=== PATIENT | female | born 1945 | race Caucasian/White ===

== ENCOUNTER 2018-04-08 11:04 | Emergency (ER) | payer MEDICARE, OTHER ==
[2016-09-30 11:10] VITALS: Wt 81.6 kg
[~2018-04-08 11:04] MED LIST: AMOX-559 PO; LEVO750T27 PO; LOR5/325 PO; NO MEDS; PEN250L PO
--- NOTE | 2018-04-08 11:12 | ER Report ---
History and Physical Time Seen By MD: 11:11 HPI/ROS CHIEF COMPLAINT: Possible DVT HISTORY OF PRESENT ILLNESS: This is a 73-year-old female presents to the emergency department for possible DVT. Patient states that yesterday morning she woke up with some left calf pain presently getting worse. Patient states she does have a history of DVT in the same leg became concerned and came in for further evaluation. Patient has not other complaints. No chest pain or shortness breath. No fevers or chills. REVIEW OF SYSTEMS: Respiratory: No cough, no dyspnea. Cardiovascular: No chest pain, no palpitations. Gastrointestinal: No vomiting, no abdominal pain. Musculoskeletal: As above. Allergies: Coded Allergies: No Known Drug Allergies (Unverified , 04/08/18) Home Meds Discontinued Scripts Amoxicillin/Pot Clav 875-125 Mg Tab (AUGMENTIN 875-125 TABLET) 1 Each Tablet, 1 TAB PO Q12H for 7 Days, TAB Prov:LIZAMANASALEKSEYALBA MARQUES 12/15/16 Past Medical/Surgical History The patient has a past medical and surgical history right hip replacement, blood clot secondary to hip replacement, abdominal surgery for stomach stapling , cholecystectomy. Reviewed Nurses Notes: Yes Hx Smoking: No Smoking Status: Former Smoker Hx Substance Use Disorder: No Hx Alcohol Use: No Constitutional Vital Sign - Last 24 Hours 04/08/18 04/08/18 04/08/18 04/08/18 11:10 11:12 11:19 11:30 Temp 97.9 Pulse 80 75 Resp 12 B/P (MAP) 130/93 (105) 130/93 117/76 (90) Pulse Ox 94 91 O2 Delivery Room Air Room Air 04/08/18 04/08/18 04/08/18 04/08/18 11:34 11:49 12:00 12:19 Pulse 75 70 63 B/P (MAP) 118/77 (91) Pulse Ox 94 97 94 O2 Delivery Room Air Room Air Room Air 04/08/18 04/08/18 12:30 12:34 Pulse 67 B/P (MAP) 115/72 (86) Pulse Ox 89 O2 Delivery Room Air Physical Exam General Appearance: The patient is alert, has no immediate need for airway protection and no current signs of toxicity. Eyes: Pupils equal and round no injection. Respiratory: Chest is non tender, lungs are clear to auscultation. Cardiac: regular rate and rhythm, no murmurs, clicks or rubs. Gastrointestinal: Abdomen is soft and non tender, no masses, bowel sounds normal. Musculoskeletal: Neck: Neck is supple and non tender. Extremities have full range of motion and are non tender. Skin: No rashes or lesions. DIFFERENTIAL DIAGNOSIS: After history and physical exam differential diagnosis was considered for muscle strain, deep vein thrombosis, Payne's cyst and superficial clot. Medical Decision Making EKG/Imaging Imaging Location: [facility] - [place] Patient: Matilde Mejia : 1945 Visit/Account:[id number] Date of Sevice: 04/08/2018 Venous Doppler ultrasound left lower extremity Indication: Evaluate for DVT. Comparison: None Available Findings: Duplex Doppler and color flow imaging was performed. The common femoral, femoral, and popliteal veins are all patent and compressible with normal Doppler wave forms. There are normal responses to augmentation. The posterior tibial and peroneal veins are patent in the calf. The proximal greater saphenous vein is also normal. IMPRESSION: 1. No evidence of deep venous thrombosis of the left lower extremity. Report Dictated By: Al Bermeo DO at 04/08/2018 12:34 PM Report E-Signed By: Al Bermeo DO at 04/08/2018 12:36 PM WSN:[email or web address] ED Course/Re-evaluation ED Course The patient was admitted to room. A history and physical were obtained. Differential diagnoses were considered. An ultrasound of the left lower extremity was negative for DVT. I did review these results with the patient and her , patient was relieved that there is no clot. I did tell the patient that it's likely a muscle cramp is causing some of the discomfort. I did tell her to follow-up with her primary care provider in about 2-4 days if no improvement. Return to the ER for any concerns or worsening symptoms. Patient was in agreement with this plan care and discharged home. Decision to Disposition Date: Apr 08, 2018 Decision to Disposition Time: 12:59 Depart Departure Latest Vital Signs Vital Signs Date Time Temp Pulse Resp B/P (MAP) Pulse Ox O2 Delivery O2 Flow Rate FiO2 04/08/18 12:34 67 89 Room Air 04/08/18 12:30 115/72 (86) 04/08/18 11:12 97.9 12 Impression: Primary Impression: Pain of left calf Condition: Improved Disposition: HOME OR SELF-CARE Referrals: MAIN STEVENS PA-C (PCP) 2 Days Patient Instructions: Leg Pain (ED) Additional Instructions: There is no evidence of DVT the left calf On ultrasound, the pain your experiencing could be a muscle strain. Be sure to drink plenty of water. Get plenty of rest. Try gentle range of motion and stretching exercises to see if this would relieve some of the discomfort. It and also try ibuprofen or Tylenol as needed for pain. Follow-up with your primary care provider in 2-4 days if no improvement. Return of the ER for any other concerns or worsening symptoms. MARY CHAUHAN CELL TECHNICIAN-BC Apr 08, 2018 11:12
[2018-04-08 12:30] VITALS: BP 115/72
--- NOTE | 2018-04-08 12:39 | RADIOLOGY IMAGING REPORT ---
FAC[facility] PATIENT NAME: Matilde Mejia : 1945 MR: [id number] V: [id number] EXAM DATE: ORDERING PHYSICIAN: MARY CHAUHAN TECHNOLOGIST: Location: [facility] - [place] Patient: Matilde Mejia : 1945 Visit/Account:[id number] Date of Sevice: 04/08/2018 Venous Doppler ultrasound left lower extremity Indication: Evaluate for DVT. Comparison: None Available Findings: Duplex Doppler and color flow imaging was performed. The common femoral, femoral, and popl iteal veins are all patent and compressible with normal Doppler wave forms. There are normal respons es to augmentation. The posterior tibial and peroneal veins are patent in the calf. The proximal greater saphenous vein is also normal. IMPRESSION: 1. No evidence of deep venous thrombosis of the left lower extremity. Report Dictated By: Al Bermeo DO at 04/08/2018 12:34 PM Report E-Signed By: Al Bermeo DO at 04/08/2018 12:36 PM WSN:[email or web address]
== END 2018-04-08 13:09 | disposition home or self-care (01) ==
LOC: ER 11:13
DX: M79.662 Pain in left lower leg (principal)
CPT/HCPCS: 99284

== ENCOUNTER → 2018-05-31 | Outpatient (REF) | payer MEDICARE, OTHER ==
[2016-09-30 11:10] VITALS: BMI 34.0
[2018-05-31 14:48] LABS: PLATELET COUNT, AUTOMATED 230 K/uL (150-450)
== END ==
LOC: ZZSENDIN 14:11
PROVIDERS: ATTEND Physician Assistant
DX: Z01.812 Encounter for preprocedural laboratory examination (principal); N39.0 Urinary tract infection, site not specified
CPT/HCPCS: 81001; 85025; 87088

== ENCOUNTER → 2018-06-01 | Outpatient (REF) | payer MEDICARE, OTHER ==
[2016-09-30 11:10] VITALS: BMI 34.0
== END ==
LOC: ZZSENDIN 10:50
PROVIDERS: ATTEND Orthopaedic Surgery
DX: Z01.812 Encounter for preprocedural laboratory examination (principal); E03.9 Hypothyroidism, unspecified; M17.12 Unilateral primary osteoarthritis, left knee; Z86.718 Personal history of other venous thrombosis and embolism
CPT/HCPCS: 86850; 86900; 86901

== ENCOUNTER → 2018-06-02 | Outpatient (CLI) | payer MEDICARE, OTHER ==
[2016-09-30 11:10] VITALS: BMI 34.0
== END ==
LOC: LAB 11:04
PROVIDERS: ATTEND Orthopaedic Surgery
DX: Z01.812 Encounter for preprocedural laboratory examination (principal); Z01.810 Encounter for preprocedural cardiovascular examination; M17.12 Unilateral primary osteoarthritis, left knee

== ENCOUNTER → 2018-06-09 | Outpatient (REF) | payer MEDICARE, OTHER ==
[2016-09-30 11:10] VITALS: BMI 34.0
[~2018-06-09] MED LIST changes: +LEVO88TA43 PO; +NITR-1 PO
== END ==
LOC: ZZSENDIN 10:32
PROVIDERS: ATTEND Family Medicine
DX: N39.0 Urinary tract infection, site not specified (principal)
CPT/HCPCS: 81001

== ENCOUNTER 2018-06-13 00:26 | Observation (INO) | payer MEDICARE, OTHER ==
[2018-06-12 11:01] LABS: INR 0.92
[2018-06-13] VITALS (8 sets, daily range): BP systolic 95–149; BP diastolic 60–96
[~2018-06-13] VITALS: Ht 162.6 cm; Wt 82.1 kg
[2018-06-13] MEDS ORDERED: fentaNYL CITR 250 MCG/5 ML AMP ONE (12:42)
[2018-06-13] MEDS ORDERED: ONDANSETRON 4 MG/2 ML VIAL ONE (12:43)
[2018-06-13] MEDS ORDERED: PROPOFOL EMUL(*) 10MG/ML 20 ML 20 ML ONE (12:43)
[2018-06-13] MEDS ORDERED: DEXAMETHASONE SOD 4 MG/ML VIAL ONE (12:43)
[2018-06-13] MEDS ORDERED: KETAMINE HCL 200 MG/20 ML MDV ONE (12:44)
[2018-06-13] MEDS ORDERED: ROPIVACAINE 0.2% 20 ML VIAL ONE (12:45)
[2018-06-13] MEDS ORDERED: LIDOCAINE/SOD BICARB 8.4% SYR ID ONE (14:15)
[2018-06-13] MEDS ORDERED: TRANEXAMIC AC 1000 MG/10ML SDV 1,000 MG in DEXTROSE 5% 50 ML BAG 50 ML IV ONE (14:15)
[2018-06-13] MEDS ORDERED: FAMOTIDINE 20 MG TAB PO ONE (14:15)
[2018-06-13] MEDS ORDERED: CELECOXIB 200 MG CAP PO ONE (14:15)
[2018-06-13] MEDS ORDERED: ceFAZolin(*) 2GM/D5W 50ML 50 ML IVPB ONE (14:15)
[2018-06-13] MEDS ORDERED: NORMOSOL R SOLN(*) 1000 ML BAG 1,000 ML IV PRN ×2 (14:15→16:15)
[2018-06-13] MEDS ORDERED: ACETAMINOPHEN 500 MG TAB PO ONE (14:15)
[2018-06-13] MEDS ORDERED: ROPIVACAINE 0.2% 400 MG/200ML 250 ML CONINFUS ONE (14:15)
[2018-06-13] MEDS ORDERED: PREGABALIN 75 MG CAPSULE PO ONE (14:15)
[2018-06-13] MEDS ORDERED: cloNIDine EPIDUR INJ 100MCG/ML 40 MCG, ROPIVACAINE 0.5% 20 ML VIAL 25 ML, EPINEPHrine H... INJ ONE (14:15)
[2018-06-13] MEDS ORDERED: MIDAZOLAM 2 MG/2 ML VIAL IVP PRN (14:15)
[2018-06-13] MEDS ORDERED: ROCURONIUM BROM 10 MG/ML 5 ML ONE (14:30)
[2018-06-13] MEDS ORDERED: HYDROmorphone HCL 2 MG/ML SDV ONE (14:35)
[2018-06-13] MEDS ORDERED: SUGAMMADEX SOD 200 MG/2 ML SDV ONE (14:53)
[2018-06-13] MEDS ORDERED: MAGNESIUM HYDROXIDE* 30ML UDCP PO PRN (16:15)
[2018-06-13] MEDS ORDERED: ONDANSETRON 4 MG/2 ML VIAL IVP PRN (16:15)
[2018-06-13] MEDS ORDERED: PROMETHAZINE 25 MG/ML 1 ML AMP IVP PRN (16:15)
[2018-06-13] MEDS ORDERED: BISACODYL 10 MG SUPP PR PRN (16:15)
[2018-06-13] MEDS ORDERED: ZOLPIDEM TARTRATE 5 MG TAB PO PRN (16:15)
[2018-06-13] MEDS ORDERED: FLUSH 10 ML SYR IVP PRN (16:15)
[2018-06-13] MEDS ORDERED: MORPHINE 4 MG/ML SDV IVP PRN (16:15)
--- NOTE | 2018-06-13 17:15 | RADIOLOGY IMAGING REPORT ---
FACILITY: [facility] - [place] PATIENT NAME: Matilde Mejia : 1945 MR: [id number] V: [id number] EXAM DATE: [id number] ORDERING PHYSICIAN: MELANIE EDGAR TECHNOLOGIST: Location: [facility] Patient: Matilde Mejia : 1945 Visit/Account:[id number] Date of Sevice: 06/13/2018 Exam type: KNEE LIMITED LEFT History: POST OP L TKA Comparison: None. Findings: Two views the left knee demonstrate a left knee arthroplasty in good anatomic alignment. Soft tissue gas projects over the anterior aspect of this postoperative knee IMPRESSION: 1. Left knee arthroplasty appears in good anatomic alignment Report Dictated By: Cathi Santillan MD at 06/13/2018 5:12 PM Report E-Signed By: Cathi Santillan MD at 06/13/2018 5:12 PM WSN:[email or web address]
--- NOTE | 2018-06-13 18:03 | Hospitalist Consultation ---
History of Present Illness Requesting Physician Dr. Gay Reason for Consult Anticoagulation History of Present Illness This patient was admitted for knee replacement surgery. It is reported that the surgery went well and was without complication. History Problems: (1) Hypothyroid (2) History of DVT (deep vein thrombosis) (3) History of cholecystectomy Status: Chronic (4) History of hip replacement Status: Chronic (5) History of gastric surgery Status: Chronic Home Meds Reported Medications Nitrofurantoin Macrocrystal (NITROFURANTOIN) 100 Mg Capsule, 100 MG PO BID, CAPSULE 06/06/18 Levothyroxine Sodium (SYNTHROID) 88 Mcg Tablet, 88 MCG PO QDAY 06/06/18 Allergies: Coded Allergies: No Known Drug Allergies (Unverified , 06/06/18) Patient History: Patient reports no known family medical history. Hx Smoking: No Smoking Status: Never Smoker Caffeine Intake: Coffee Caffeine/Cups Per Day: 3-4 Hx Alcohol Use: No Hx Substance Use Disorder: No Social Drug Use: Never History of IV Drug Use: No Review of Systems All Systems Reviewed/Normal: Yes Exam Vital Signs Vital Signs Date Time Temp Pulse Resp B/P (MAP) Pulse Ox O2 Delivery O2 Flow Rate FiO2 06/13/18 17:13 97.3 66 16 134/81 (98) 98 Nasal Cannula 2.0 Cardiovascular: Regular Rate and Rhythm Respiratory: Clear to Auscultation Assessment and Plan Problems: (1) S/P knee replacement Assessment & Plan: She is on Xarelto prophylaxis. (2) Hypothyroid Assessment & Plan: She is on chronic treatment with Synthroid. Venous Thromboembolism Antithrombotics Is Pt On Any Antithrombotics?: Yes DAKSHA FOSTER DO Jun 13, 2018 18:03
[2018-06-13] MEDS ORDERED: ACETAMINOPHEN 500 MG TAB ONE (21:05)
[2018-06-13] MEDS: ACETAMINOPHEN 500 MG TAB PO SCH (21:05)
[2018-06-13] MEDS ORDERED: NS(*) 0.9% 250 ML BAG 250 ML ONE (21:07)
[2018-06-13] MEDS: ceFAZolin(*) 1 GM VIAL 1 GM in NS(*) 0.9% 100 ML ADDVANT BAG 100 ML IVPB SCH (21:15)
[2018-06-14] MEDS: ACETAMINOPHEN 500 MG TAB PO SCH ×3 (03:34→19:30)
[2018-06-14 03:35] VITALS: BP 127/73
[2018-06-14] MEDS: ceFAZolin(*) 1 GM VIAL 1 GM in NS(*) 0.9% 100 ML ADDVANT BAG 100 ML IVPB SCH ×2 (05:55→13:43)
[2018-06-14] MEDS: LEVOTHYROXINE SOD 0.088 MG TAB PO SCH (05:55)
[2018-06-14 07:30] VITALS: BP 113/65
[2018-06-14] MEDS: RIVAROXABAN 10 MG TAB PO SCH (10:09)
--- NOTE | 2018-06-14 11:17 | Hospitalist Progress Note ---
Subjective Progress Notes Subjective She has no complaints this morning. She had no acute events overnight. Patient Complains of: Cardiovascular: No: Chest Pain Respiratory: No: Shortness of Breath Physical Exam Vital Signs Date Time Temp Pulse Resp B/P (MAP) Pulse Ox O2 Delivery O2 Flow Rate FiO2 06/14/18 07:32 94 Nasal Cannula 2.0 06/14/18 07:30 97.8 64 14 113/65 (81) Intake and Output 06/14/18 07:00 Intake Total 3100 ml Output Total 175 ml Balance 2925 ml Intake Oral 1000 ml IV Total 2100 ml Output Estimated Blood Loss 175 ml # Voids 2 General Appearance: Alert, Awake, No Acute Distress, Afebrile Neuro: No Gross deficits Cardiovascular: Regular Rate and Rhythm Respiratory: No Respiratory Distress, Clear to Auscultation GI: Soft and Non-Tender Extremities: Warm, Perfused; No Edema Psych: Alert & Oriented X3, Appropriate Mood & Affect Assessment and Plan Problems: (1) S/P knee replacement Assessment & Plan: She is on Xarelto prophylaxis. (2) Hypothyroid Assessment & Plan: She is on chronic treatment with Synthroid. Exam Sepsis Risk: No Definite Risk FORD BENSON DESK MANAGER Jun 14, 2018 11:17
[2018-06-14 11:26] VITALS: BP 130/68
--- NOTE | 2018-06-14 11:30 | CARSON TKA ---
EVENT DATE: June 13, 2018 SURGEON: Caio Gay MD ANESTHESIOLOGIST: Brennan Chambers MD ANESTHESIA: Left adductor block followed by general. We also utilized 50 cc of our standard Toradol/ropivacaine cocktail. BOILER OR ENGINE OPERATOR: Alex Rodriguez PA-C PREOPERATIVE DIAGNOSIS Left knee degenerative joint disease. POSTOPERATIVE DIAGNOSIS Left knee degenerative joint disease. PROCEDURE PERFORMED Left total knee arthroplasty. IMPLANTS Micro-Port Medial Pivot CS System with a 3 femur, 3 tibia, 14 mm CS insert, 8x29 symmetric patella, femur cut 6 degrees valgus, 10 mm. We also utilized two packages of [employer] [place] Blue Cement and ZipLine Wound Closure System. SPECIMENS None. COMPLICATIONS None. ESTIMATED BLOOD LOSS Less than 200 cc. OPERATION The patient was brought to the OR, after receiving appropriate preoperative antibiotic and Dr. Chambers performed left adductor canal block followed by general anesthesia. Left thigh tourniquet placed. The left lower extremity was prepped and draped in the usual sterile fashion. Midline incision was made followed by a medial parapatellar arthrotomy. I dissected subperiosteally along the medial tibial plateau to the level of the semimembranosus insertion. A fat pad was excised. The lateral gutter was released of adhesions. The patella was released and everted. The knee was brought up in hyperflexion. ACL and PCL were released subperiosteally by Bovie. The remaining articular cartilage was removed from the distal femoral condyle. Sep-cut drill was utilized to broach the femoral canal. We placed an intramedullary distal femoral cutting guide and set the cutting block up at 10 mm, 6-degrees valgus with care taken to protect the soft tissues and made the distal cut. 3-degree external rotation guide and sizer was positioned, referencing out the posterior condyles, anterior condyles and anterior flange. This was sized to #3 and 3-degree external rotation holes were drilled. Four-in-one cutting block was positioned followed by Z-retractors to protect the soft tissue and our four cuts were made. The tibia was then brought anteriorly on the femur with appropriate retractors. The tibial canal was broached with the Step- cut drill. Intramedullary tibial guide was then positioned, which was referencing for the slope. Then we referenced 10 mm off the least involved lateral tibial plateau where there was eburnation noted on the medial side. We set up for rotation, pinning our block into place with care taken to protect the soft tissues and made our tibial cut and this was sized to #3. The stump of the ACL and PCL and medial and lateral meniscus were removed by Bovie. Posterior osteophytes were removed by curved osteotome. The capsule was elevated with Paredes elevator. Trial tibial baseplate #3 was positioned and pinned into place, referencing for the previous rotation. We started with 10 and moving finally up to 14 mm. We then placed our #3 femur and we achieved full extension followed by 140 degrees of flexion, stability to varus and valgus stress and 90 degrees and anterior drawer was satisfactory. We then placed the knee in full extension. Patella was sized to 21 mm in depth. We cut this down with 6 mm guide. Peg hole guide was positioned inferiorly medially. We drilled our three peg holes and this accepted a 29x8 symmetric patella. We then brought the knee up in flexion, drilled the peg holes for the femur and these were filled with our pegs and cut for trochlear chip and this was placed. Again, we had the aforementioned range of motion and stability and the patella tracked well. The patella, femoral and tibial insert were removed. Appropriate retractors were positioned so we could set up our tibial punch tower. This was cut, reamed and punched for keel. These instruments were removed. Bone plug was placed in the distal femur. Knee was brought into full extension and we copiously irrigated by pulse lavage while we mixed two packages of [employer] [place] Blue Cement. I then injected 10 cc of our cocktail in the posterior capsule and then brought up the knee in appropriate position and extended the tibia followed by 14 mm CS insert and then our #3 femur. Excess cement was removed. The knee allowed full extension. Axial compression while we cemented the patella. It took 14 minutes for the cement to harden and cure. Again, we had the aforementioned range of motion and stability and tracking. We copiously irrigated as the cement was curing as well as injected our remaining cocktail into the quadriceps mechanism. We then closed the arthrotomy with #2 Vicryl followed by 2-0 Vicryl in the subcutaneous tissues and ZipLine Wound Closure System for skin. The hospitalist team was consulted for medical management and anticoagulation and PT for rehab. SWATI
[2018-06-14] MEDS: oxyCODONE HCL 5 MG CAP PO PRN ×2 (12:48→21:48)
[2018-06-14 15:32] VITALS: Ht 162.6 cm; Wt 82.1 kg
[2018-06-14 15:42] VITALS: BP 121/59
[2018-06-14 19:24] VITALS: BP 121/66
[2018-06-14 23:33] VITALS: BP 119/63
[2018-06-15 03:35] VITALS: BP 132/87
[2018-06-15] MEDS: ACETAMINOPHEN 500 MG TAB PO SCH (03:38)
[2018-06-15] MEDS: oxyCODONE HCL 5 MG CAP PO PRN ×3 (03:38→12:20)
[2018-06-15] MEDS: LEVOTHYROXINE SOD 0.088 MG TAB PO SCH (05:35)
[2018-06-15 08:34] VITALS: BP 143/61
[2018-06-15] MEDS: RIVAROXABAN 10 MG TAB PO SCH (08:37)
[2018-06-15] MEDS ORDERED: OXYC5CAP21 PO (08:57)
[2018-06-15] MEDS ORDERED: RIV10 PO (09:08)
--- NOTE | 2018-06-15 11:06 | Hospitalist Progress Note ---
Subjective Progress Notes Subjective She has no complaints this morning. She had no acute events overnight. Patient Complains of: Cardiovascular: No: Chest Pain Respiratory: No: Shortness of Breath Physical Exam Vital Signs Date Time Temp Pulse Resp B/P (MAP) Pulse Ox O2 Delivery O2 Flow Rate FiO2 06/15/18 08:37 96 Nasal Cannula 1.0 06/15/18 08:34 98.6 73 20 143/61 (88) Intake and Output 06/15/18 07:00 Intake Total 1700 ml Balance 1700 ml Intake Oral 1700 ml # Voids 3 General Appearance: Alert, Awake, No Acute Distress, Afebrile Neuro: No Gross deficits Cardiovascular: Regular Rate and Rhythm Respiratory: No Respiratory Distress, Clear to Auscultation GI: Soft and Non-Tender Psych: Alert & Oriented X3, Appropriate Mood & Affect Assessment and Plan Problems: (1) S/P knee replacement Assessment & Plan: She is on Xarelto prophylaxis. (2) Hypothyroid Assessment & Plan: She is on chronic treatment with Synthroid. Exam Sepsis Risk: No Definite Risk FORD BENSONP Jun 15, 2018 11:06
== END 2018-06-15 12:38 | disposition home or self-care (01) ==
LOC: OR 00:26 → MED 17:13
PROVIDERS: ADMIT Orthopaedic Surgery; ATTEND Orthopaedic Surgery
DX: M17.12 Unilateral primary osteoarthritis, left knee (principal); Z86.718 Personal history of other venous thrombosis and embolism
CPT/HCPCS: 27447; 36415; 73560; 76942; 85610; 86850; 86900; 86901; 97110; 97116; 97161; 97530; A9270; C1713; C1776; G0378; J0171; J0690; J0735; J1100; J1170; J1885; J2250; J2405; J2704; J2795; J3010; J3490; J7050; J7060

== ENCOUNTER 2018-09-19 19:25 | Emergency (ER) | payer MEDICARE, OTHER ==
[2018-06-14 15:32] VITALS: Wt 83.0 kg
[~2018-09-19 19:25] MED LIST changes: +OXYC5CAP21 PO; +RIV10 PO
--- NOTE | 2018-09-19 19:40 | ER Report ---
History and Physical Time Seen By MD: 19:35 Hx. of Stated Complaint: PATIENT HAS CONGESTION FOR ABOUT AN WEEK; PATIENT STATES THAT SHE DOES NOT LIKE TO TAKE COLD MEDICATIONS; PATIENT STATES THAT IT HAS GOTTEN HARDER TO BREATH HPI/ROS CHIEF COMPLAINT: Cough and mild shortness of breath HISTORY OF PRESENT ILLNESS: This is a 73-year-old female who presents to the emergency department for a cough and mild shortness of breath. Patient states that she's had a semi-productive cough for about a week with some congestion. P atient denies nausea or vomiting. She does have some increased dyspnea with exertion, with increased left rib pain along the costal margin with her coughing episodes. No abdominal pain, no dysuria or diarrhea. No fevers or chills. No rashes. REVIEW OF SYSTEMS: Constitutional: No fever, no chills. Eyes: No discharge. ENT: No sore throat. Cardiovascular: No chest pain, no palpitations. Respiratory: As above. Gastrointestinal: No abdominal pain, no vomiting. Genitourinary: No hematuria. Musculoskeletal: No back pain. Skin: No rashes. Neurological: No headache. Allergies: Coded Allergies: No Known Drug Allergies (Unverified , 06/06/18) Home Meds Active Scripts Prednisone (PREDNISONE) 20 Mg Tablet, 20 MG PO BID, #10 TAB Prov:MARY CHAUHAN SELF PROPELLED MINING MACHINE OPERATOR-BC 09/19/18 Reported Medications Levothyroxine Sodium (SYNTHROID) 88 Mcg Tablet, 88 MCG PO QDAY 06/06/18 Discontinued Reported Medications Oxycodone Hcl (OXYCODONE HCL) 5 Mg Capsule, 5 MG PO Q4-6H PRN for PAIN, #30 CAPSULE 06/15/18 Discontinued Scripts Rivaroxaban (XARELTO 10 MG TAB (OR EQUIV)) 10 Mg Tablet, 10 MG PO QDAY for 14 Days, #14 TAB Take for blood clot prevention. Prov:FORD BENSON SELF PROPELLED MINING MACHINE OPERATOR 06/15/18 Past Medical/Surgical History The patient has a past medical and surgical history of menopause, hip replacement, arthritis, right foot fracture, dentures, wears glasses, hypothyroidism, DVT, total knee, bilateral cataract surgery. Reviewed Nurses Notes: Yes Hx Smoking: No Smoking Status: Never Smoker Hx Substance Use Disorder: No Hx Alcohol Use: No Constitutional Vital Sign - Last 24 Hours 1/1409/19/18 09/19/18 09/19/18 19:29 19:31 19:55 20:00 Temp 99.1 Pulse 92 92 Resp 18 17 B/P (MAP) 154/88 154/88 (110) 136/82 (100) Pulse Ox 92 91 O2 Delivery Room Air 09/19/18 09/19/18 09/19/18 09/19/18 20:25 20:30 20:55 21:00 Pulse 94 Resp 24 20 B/P (MAP) 135/83 (100) 143/80 (101) Pulse Ox 85 91 09/19/18 09/19/18 09/19/18 09/19/18 21:10 21:10 21:14 21:30 Pulse 88 90 93 Resp 18 22 16 B/P (MAP) 138/70 (92) Pulse Ox 91 87 O2 Delivery Room Air 09/19/18 22:00 B/P (MAP) 132/80 (97) Physical Exam General Appearance: The patient is alert, has no immediate need for airway protection and no signs of toxicity. Eyes: Pupils equal and round no pallor or injection. ENT, Mouth: Mucous membranes are moist. Respiratory: There are no retractions, lungs are clear to auscultation. Cardiovascular: Regular rate and rhythm, no murmurs, clicks or rubs. Gastrointestinal: Abdomen is soft and non tender, no masses, bowel sounds normal. Neurological: Alert and oriented 4. Moving all extremities. Following all commands. No focal neuro deficits. Skin: Warm and dry, no rashes. Musculoskeletal: Neck is supple non tender. Left rib pain along the costal margin. No crepitus or deformities. No bruising. Extremities are nontender, nonswollen and have full range of motion. DIFFERENTIAL DIAGNOSIS: After history and physical exam differential diagnosis was considered for shortness of breath including but not limited to pulmonary infectious process, COPD, asthma, pulmonary embolus and congestive heart failure. Medical Decision Making Data Points Result Diagram: 09/19/18201809/19/182018 Laboratory Hematology Test 09/19/18 19:33 09/19/18 20:19 Influenza Virus Type A (PCR) Negative (NEGATIVE) Influenza Virus Type B (PCR) Negative (NEGATIVE) Red Blood Count 5.31 M/uL (4.17-5.56) Mean Corpuscular Volume 79.3 fL (80.0-96.0) Mean Corpuscular Hemoglobin 25.7 pg (26.0-33.0) Mean Corpuscular Hemoglobin Concent 32.4 g/dL (32.0-36.0) Red Cell Distribution Width 14.7 % (11.5-14.5) Mean Platelet Volume 8.9 fL (7.2-11.1) Neutrophils (%) (Auto) 75.1 % (39.4-72.5) Lymphocytes (%) (Auto) 12.5 % (17.6-49.6) Monocytes (%) (Auto) 9.9 % (4.1-12.4) Eosinophils (%) (Auto) 2.1 % (0.4-6.7) Basophils (%) (Auto) 0.4 % (0.3-1.4) Nucleated RBC Relative Count (auto) 0.1 /100WBC Neutrophils # (Auto) 8.8 K/uL (2.0-7.4) Lymphocytes # (Auto) 1.5 K/uL (1.3-3.6) Monocytes # (Auto) 1.1 K/uL (0.3-1.0) Eosinophils # (Auto) 0.2 K/uL (0.0-0.5) Basophils # (Auto) 0.0 K/uL (0.0-0.1) Nucleated RBC Absolute Count (auto) 0.01 K/uL Sodium Level 137 mmol/L (137-145) Potassium Level 3.9 mmol/L (3.5-5.0) Chloride Level 103 mmol/L (98-107) Carbon Dioxide Level 24 mmol/L (22-31) Blood Urea Nitrogen 11 mg/dl (7-18) Creatinine 0.60 mg/dl (0.52-1.04) Glomerular Filtration Rate Calc > 60.0 Random Glucose 136 mg/dl (75-110) Calcium Level 9.2 mg/dl (8.4-10.2) Total Bilirubin 0.4 mg/dl (0.2-1.3) Aspartate Amino Transf (AST/SGOT) 25 U/L (0-35) Alanine Aminotransferase (ALT/SGPT) 23 U/L (0-56) Alkaline Phosphatase 86 U/L (0-126) Troponin I < 0.012 ng/ml Total Protein 7.3 g/dl (6.3-8.2) Albumin 4.0 g/dl (3.5-5.0) Chemistry Test 09/19/18 19:33 09/19/18 20:19 Influenza Virus Type A (PCR) Negative (NEGATIVE) Influenza Virus Type B (PCR) Negative (NEGATIVE) White Blood Count 11.6 k/uL (4.5-11.0) Red Blood Count 5.31 M/uL (4.17-5.56) Hemoglobin 13.6 g/dL (12.0-16.0) Hematocrit 42.1 % (34.0-47.0) Mean Corpuscular Volume 79.3 fL (80.0-96.0) Mean Corpuscular Hemoglobin 25.7 pg (26.0-33.0) Mean Corpuscular Hemoglobin Concent 32.4 g/dL (32.0-36.0) Red Cell Distribution Width 14.7 % (11.5-14.5) Platelet Count 215 K/uL (150-450) Mean Platelet Volume 8.9 fL (7.2-11.1) Neutrophils (%) (Auto) 75.1 % (39.4-72.5) Lymphocytes (%) (Auto) 12.5 % (17.6-49.6) Monocytes (%) (Auto) 9.9 % (4.1-12.4) Eosinophils (%) (Auto) 2.1 % (0.4-6.7) Basophils (%) (Auto) 0.4 % (0.3-1.4) Nucleated RBC Relative Count (auto) 0.1 /100WBC Neutrophils # (Auto) 8.8 K/uL (2.0-7.4) Lymphocytes # (Auto) 1.5 K/uL (1.3-3.6) Monocytes # (Auto) 1.1 K/uL (0.3-1.0) Eosinophils # (Auto) 0.2 K/uL (0.0-0.5) Basophils # (Auto) 0.0 K/uL (0.0-0.1) Nucleated RBC Absolute Count (auto) 0.01 K/uL Glomerular Filtration Rate Calc > 60.0 Calcium Level 9.2 mg/dl (8.4-10.2) Total Bilirubin 0.4 mg/dl (0.2-1.3) Aspartate Amino Transf (AST/SGOT) 25 U/L (0-35) Alanine Aminotransferase (ALT/SGPT) 23 U/L (0-56) Alkaline Phosphatase 86 U/L (0-126) Troponin I < 0.012 ng/ml Total Protein 7.3 g/dl (6.3-8.2) Albumin 4.0 g/dl (3.5-5.0) EKG/Imaging EKG Interpretation 12 lead EKG: Time of EKG 2006. Rhythm: normal sinus rhythm, ventricular rate 90 bpm. [place]: normal QRS: normal ST segments: No ST depression or elevation identified. No significant changes from the 09/29/2016 EKG. [place] [facility] [place] Matilde Mej[place] : 1945 Visit/Account:[id number] Date of Sevice: 09/19/2018 EXAMINATION: Chest 2 Views HISTORY: Respiratory distress. COMPARISON: 11/11/2016. FINDINGS: Mild chronic appearing interstitial changes bilaterally with slight scarring or atelectasis at the lung bases. No suspicious focal consolidation. No pleural effusion or pneumothorax. Normal heart size and pulmonary vascularity. Moderate sized hiatal hernia behind the heart. No acute osseous findings. Multilevel degenerative changes throughout the spine. Cholecystectomy clips in the upper abdomen. IMPRESSION: 1. Mild chronic interstitial changes with mild scarring or atelectasis in the lung bases. 2. No other acute findings in the chest. 3. Moderate-sized hiatal hernia. Report Dictated By: Luis Alberto Lazaro MD at 09/19/2018 9:19 PM Report E-Signed By: Luis Alberto Lazaro MD at 09/19/2018 9:21 PM WSN:[id number] ED Course/Re-evaluation Clinical Indication for ER IV: Hydration, IV Access ED Course The patient was admitted to room. A history and physical were obtained. Diffe rential diagnoses were considered. An IV was started. A CBC, CMP and troponin were obtained. EKG obtained. Two-view chest x-ray. A 500 mL normal saline bolus was given. A UA was collected. EKG showing normal sinus rhythm, unchanged from previous EKGs.CBC showing white count 11.6, chemistry showing glucose 136, negative troponin, negative influenza. No acute findings on two-view chest x- ray. I reviewed the results with the patient, did tell her this is likely a viral illness, I did start the patient on a prednisone burst, given 1st dose of 20 mg prednisone in the emergency department. She was also sent home with a metered dose inhaler of albuterol and a spacer. I did tell the patient elected for her to follow-up with her primary care provider by the end of this week, patient expressed understanding, was in agreement with this plan of care and discharged home. Decision to Disposition Date: Sep 19, 2018 Decision to Disposition Time: 21:58 Depart Departure Latest Vital Signs Vital Signs Date Time Temp Pulse Resp B/P (MAP) Pulse Ox O2 Delivery O2 Flow Rate FiO2 09/19/18 22:00 132/80 (97) 09/19/18 21:30 93 16 87 09/19/18 21:10 Room Air 09/19/18 19:29 99.1 Impression: Primary Impression: Cough Condition: Improved Disposition: HOME OR SELF-CARE Referrals: [facility] PA-C (PCP) New Scripts Prednisone (PREDNISONE) 20 Mg Tablet 20 MG PO BID, #10 TAB Prov: MARY CHAUHAN 09/19/18 Patient Instructions: Acute Cough (ED) Additional Instructions: There were no concerning finding on your Xray today. This is likely a viral illness and will hopefully pass. Please follow up with [facility] by Wednesday for reevaluation. Take the prednisone as directed, for your cough. Use the inhaler as needed for your cough. Drink plenty of water. Get plenty of rest. Return to the ED for any other concerns or worsening symptoms. MARY CHAUHAN-SILVERIO Sep 19, 2018 19:40
[2018-09-19] MEDS ORDERED: NS(*) 0.9% 500 ML BAG 500 ML IV ONE (19:53)
[2018-09-19 20:36] LABS: PLATELET COUNT, AUTOMATED 215 K/uL (150-450)
[2018-09-19] MEDS ORDERED: ALBUTEROL/IPRATROPIUM 3 ML NEB NEB ONE (21:05)
--- NOTE | 2018-09-19 21:24 | RADIOLOGY IMAGING REPORT ---
FACILITY: [facility] PATIENT NAME: Matilde Mejia : 1945 MR: [id number] V: [id number] EXAM DATE: ORDERING PHYSICIAN: MARY CHAUHAN TECHNOLOGIST: Location: [facility] [place] Patient: Matilde Mejia : 1945 Visit/Account:[id number] Date of Sevice: 09/19/2018 EXAMINATION: Chest 2 Views HISTORY: Respiratory distress. COMPARISON: 11/11/2016. FINDINGS: Mild chronic appearing interstitial changes bilaterally with slight scarring or atelectasis at the maria l ng bases. No suspicious focal consolidation. No pleural effusion or pneumothorax. Normal heart size and pulmonary vascularity. Moderate sized hiatal hernia behind the heart. No acute osseous findings. Multilevel degenerative changes throughout the spine. Cholecystectomy clip s in the upper abdomen. IMPRESSION: 1. Mild chronic interstitial changes with mild scarring or atelectasis in the lung bases. 2. No other acute findings in the chest. 3. Moderate-sized hiatal hernia. Report Dictated By: Luis Alberto Lazaro MD at 09/19/2018 9:19 PM Report E-Signed By: Luis Alebrto Lazaro MD at 09/19/2018 9:21 PM WSN:[id number]
--- NOTE | 2018-09-19 21:24 | EKG ---
FACILITY: [facility] PATIENT NAME: KAYLEY BOYLE : [id number] MR: [id number] V: [id number] EXAM DATE: ORDERING PHYSICIAN: MARY CHAUHAN TECHNOLOGIST: MAUREEN Test Reason : COUGH W DYSPNEA Blood Pressure : / mmHG Vent. Rate : 090 BPM Atrial Rate : 090 BPM P-R Int : 160 ms QRS Dur : 090 ms QT Int : 348 ms P-R-T Axes : 012 042 046 degrees QTc Int : 425 ms Sinus rhythm Nonspecific ST findings in limb leads When compared with ECG of 29-SEP-2016 12:41, No significant change was found Confirmed by TIARA GORDON ([id number] on 09/20/2018 6:38:38 AM Referred By: Confirmed By:TIARA GORDON
[2018-09-19] MEDS ORDERED: PRED20TA6 PO (21:40)
[2018-09-19] MEDS ORDERED: predniSONE 20 MG TAB PO ONE (21:55)
[2018-09-19] MEDS ORDERED: ALBUTEROL 8 GM INHALER INH ONE (21:55)
[2018-09-19 22:00] VITALS: BP 132/80
== END 2018-09-19 22:11 | disposition home or self-care (01) ==
LOC: ER 19:42
DX: R05 Cough (principal)
CPT/HCPCS: 71046; 84484; 85025; 87502; 93005; 94640; 96360; 96361; 99284; J3535; J7040; J7512; J7620; 82040; 82247; 82310; 82374; 82435; 82565; 82947; 84075; 84132; 84155; 84295; 84450; 84460; 84520